=== PATIENT | female | born 1980 | race Caucasian/White ===

== ENCOUNTER → 2017-05-30 | Outpatient (CLI) | payer OTHER ==
[~2017-05-30] MED LIST: ACET-1311 PO; BCPILLS PO; IBUP-1050 PO; PRENTAB26 PO; PSYL55.43 PO
[2017-05-30 10:06] LABS: CHOLESTEROL/HDL RATIO 3.8
== END | disposition home or self-care (01) ==
LOC: C.LAB 07:14
PROVIDERS: ATTEND Family Medicine
DX: Z13.220 Encounter for screening for lipoid disorders (principal); Z13.1 Encounter for screening for diabetes mellitus

== ENCOUNTER → 2018-06-10 | Outpatient (CLI) | payer OTHER | END | disposition home or self-care (01) | LOC: C.LABSPEC 17:53 | PROVIDERS: ATTEND Obstetrics & Gynecology | DX: O09.521 Supervision of elderly multigravida, first trimester (principal); Z3A.00 Weeks of gestation of pregnancy not specified ==

== ENCOUNTER → 2018-06-18 | Outpatient (CLI) | payer OTHER | END | disposition home or self-care (01) | LOC: C.LAB1850 13:32 | PROVIDERS: ATTEND Obstetrics & Gynecology | DX: O09.521 Supervision of elderly multigravida, first trimester (principal); Z3A.00 Weeks of gestation of pregnancy not specified ==

== ENCOUNTER → 2018-06-24 | Outpatient (CLI) | payer OTHER | END | disposition home or self-care (01) | LOC: C.LAB 07:21 | PROVIDERS: ATTEND Family Medicine | DX: Z00.00 Encounter for general adult medical examination without abnormal findings (principal) ==

== ENCOUNTER 2019-09-24 07:35 | Inpatient (IN) ==
[2019-09-24] MEDS ORDERED: OXYTOCIN 30 UNITS/500 ML BAG IV PRN ×3 (07:52→19:25)
[2019-09-24] MEDS ORDERED: PENICILLIN G POTASSIUM 6 MU in DEXTROSE 5% 250 ML IV STA (07:59)
[2019-09-24 08:18] LABS: Hematocrit (blood only) 36.9 % (37-47); Hemoglobin 12.3 g/dL (12.0-16.0); Mean Corpuscular Hemoglobin 30.3 pg (25-34); Mean Corpuscular Volume 90.9 fL (80-100); Mean Platelet Volume 10.6 fL (7.4-10.4); Platelet Count 235 K/uL (130-400); RDW Coefficient of Variation 14.8 % (11.5-14.5); RDW Standard Deviation 48.7 fL (36.4-46.3); Red Blood Count 4.06 M/uL (4.2-5.4); White Blood Count 8.62 K/uL (4.8-10.8)
[2019-09-24 08:30] LABS: Mean Corpuscular Hgb Conc 33.3 g/dL (32-36)
--- NOTE | 2019-09-24 08:32 | History & Physical Report ---
Date of Service September 24, 2019 Assessment & Plan (1) Supervision of elderly multigravida: (2) Group B Streptococcus carrier, antepartum: (3) Encounter for elective induction of labor: admit, iv, labs. worrell placed for mechanical dilation. start pit and pcn. pt and partner agreeable to plan. History of Present Illness Chief Complaint: planned induction Primary Care Provider: Kyle Monique MD 39yo at 39 wks ega presents for planned social induction. Denies regular ctx, rom, vb. +FM. Aware of plan for cervical dilator and pitocin and agrees. PNC c/b 1. AMA--low risk panorama 2 GBS pos PNL RH pos, ri, gbs pos OBH: x 1 sab x 3 GYNH: nl paps, no stds PMH: neg PSH: wisdom teeth Allergies Allergy/AdvReac Type Severity Reaction Status Date / Time No Known Allergies Allergy Unknown Verified 09/23/19 10:57 Home Medications Home Medications Medication Instructions Recorded Confirmed Type [id number] 3-fat com #1 27 cap PO cap 07/01/19 09/23/19 History mg-1 mg-300 mg capsule psyllium PO PRN 07/01/19 09/23/19 History Patient History Medical History History of spontaneous History of varicella Surgical History History of wisdom tooth extraction Family History Aunt Breast cancer paternal Grandmother (Paternal) Diabetes Dyslipidemia Hypertension Stroke Father Hypertension Sister Thyroid disease Social History Preferred Language: Icelandic Communication Ability: 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 Beliefs That Will Affect Care: None marital status: Current Living Situation: Family Other Information That Helps Us Care for You: No Feels Safe at Home: Yes Safety Concerns: Feels Safe At This Time Smoking Status: Never smoker Do You Dip or Chew Tobacco: No ; Second Hand Exposure: No ; Hx Alcohol Use: Yes (when not ) Alcohol type: hard liquor Hx Substance Use: No Review of Systems no fever no dysuria and no abnormal vaginal bleeding Physical Exam Constitutional: WD/WN, vitals as above Respiratory: normal respiratory effort, lungs clear to auscultation Cardiovascular: Rate/Rhythm: regular rate and regular rhythm Gastrointestinal (Abdomen): Percussion/Palpation: abdomen soft (gravid efw 8#); abdomen nontender Neurologic: grossly normal Psychiatric: A+Ox3, euthymic affect Genitourinary: OB Exam Abdomen: + vertex and + estimated weight (8#) Manual OB Exam: + cervical dilation (1+), + cervical effacement 50% and + station -2 OB Exam Monitor Tracing: + external FHT monitor used (130 mod variability, reactive ), + external uterine monitor used (q4), + category I and + normal FHT variability PROCEDURE: spec placed, worrell through os and balloon inflated with 40cc water, speculum removed, worrell taped to leg. Results & Data Vital Signs (Past 12 Hours) Vital Signs Temp Resp 09/24/19 08:02 98.2 F 20
[2019-09-24] MEDS: LACTATED RINGER'S 1,000 ML IV PRN ×2 (09:15→15:28)
--- NOTE | 2019-09-24 13:02 | Labor Progress Brief Note ---
Date of Service September 24, 2019 Subjective Reason For Note: Routine Evaluation worrell balloon fell out. can feel ctx but tolerating. Assessment & Plan (1) Encounter for elective induction of labor: worrell fell out. cx as noted. see how arom augments labor pattern, c/w pit. (2) Group B Streptococcus carrier, antepartum: on pcn (3) Supervision of elderly multigravida: Physical Exam Constitutional: WD/WN, vitals as above Genitourinary: Manual OB Exam: + cervical dilation 4 cm, + cervical effacement 70%, + station -2 and + amniotic fluid (AROM) clear OB Exam Monitor Tracing: + external FHT monitor used (130 mod variability, reactive), + external uterine monitor used (q2, pit 3), + category I and + normal FHT variability Results & Data Vital Signs (Past 12 Hours) Vital Signs Temp Pulse Resp BP 09/24/19 10:24 76 113/79 09/24/19 08:38 73 113/77 09/24/19 08:02 98.2 F 20
[2019-09-24] MEDS ORDERED: ePHEDrine sulfate 50 MG/ML AMP ONE (13:35)
[2019-09-24] MEDS ORDERED: BUPIVACAINE 0.25% 30 ML VIAL ONE ×2 (13:35→18:53)
[2019-09-24] MEDS ORDERED: fentaNYL citrate 100 MCG/2 ML VIAL ONE (13:35)
[2019-09-24] MEDS ORDERED: fentaNYL 2MCG/ML ROPIV 1.25MG/ML 100 ML BAG EPI ONE (13:36)
[2019-09-24] MEDS: PENICILLIN G POTASSIUM 3 MU in DEXTROSE 5% 100 ML IV PRN ×2 (13:37→17:37)
--- NOTE | 2019-09-24 14:42 | Anesthesiology Consultation ---
Date of Service September 24, 2019 Assessment & Plan (1) Encounter for pre-operative examination: Chart Review Chart Review: Patient NOT seen in Pre Admission Testing and Acceptable Risk for Labor Epidural Consults Requested none ASA ASA2 Proposed Anesthesia Anesthesia Type: Labor Epidural Risk / Benefits Reviewed With: PT / POA / Parent / Guardian, Accepts Plan and Informed Consent Obtained History Height/Weight Height: 5 ft 4 in Weight: 92.533 kg Allergies Allergy/AdvReac Type Severity Reaction Status Date / Time No Known Allergies Allergy Unknown Verified 09/23/19 10:57 Medications Home Medications Medication Instructions Recorded Confirmed Last Taken Formula-DHA 1 PO DAILY 09/24/19 09/23/19 20:00 Active Medications Generic Name Dose Route Start Last Admin Trade Name Freq PRN Reason Stop Dose Admin Lactated Ringer's 1,000 mls @ 125 mls/hr 09/24/19 07:52 09/24/19 14:07 Lr IV 09/26/19 07:51 Infused .Q8H PRN Infusion L&D Protocol Protocol Oxytocin 30 units in 500 mls @ 3 mls/hr 09/24/19 07:52 09/24/19 10:23 Pitocin IV 09/26/19 07:51 0.18 units/hr .Q24H PRN 3 mls/hr Labor Induction/Augmentation Titration Protocol 0.18 UNITS/HR Penicillin G Potassium 3 mu/ 106 mls @ 100 mls/hr 09/24/19 12:00 09/24/19 13:37 Dextrose IV 10/04/19 11:59 100 mls/hr Q4H PRN Administration Give until delivery Past Medical History Medical History History of spontaneous History of varicella Exercise / Class Metabolic Activity II 4-5 Yardwork/Stairs/Walk up hill Past Family History Family History Aunt Breast cancer paternal Grandmother (Paternal) Diabetes Dyslipidemia Hypertension Stroke Father Hypertension Sister Thyroid disease Past Surgical History Surgical History History of wisdom tooth extraction Past Anesthesia History No Hx of Anesthesia Complications and No Family Hx of Anesthesia Complications History of PONV No Hx of PONV and No Hx of Motion Sickness Social History Smoking Status: Never smoker Do You Dip or Chew Tobacco: No Hx Alcohol Use: Yes (when not ) Alcohol type: hard liquor alcohol intake frequency: holidays/special occasions only Hx Substance Use: No substance use type: does not use Physical Exam Vital Signs Last Vital Signs Temp 37.1 C 09/24/19 13:47 Pulse 60 09/24/19 14:41 Resp 20 09/24/19 13:47 BP 90/55 L 09/24/19 14:41 Pulse Ox 100 09/24/19 14:37 ENMT Mouth: no dentition abnormality Thyromental Distance: > or= 3.5 Finger Breadths Mallampati Class: II Neck normal visual inspection Respiratory normal respiratory effort Auscultation: lungs clear to auscultation bilaterally Cardiovascular Rate/Rhythm: regular rate and regular rhythm Psychiatric Orientation: alert Testing Laboratory Results 09/24/19 08:01
[2019-09-24] MEDS ORDERED: ePHEDrine sulfate 50 MG/ML AMP IV PRN (14:43)
[2019-09-24] MEDS ORDERED: fentaNYL 2MCG/ML ROPIV 1.25MG/ML 100 ML BAG EPI PRN (14:43)
[2019-09-24] MEDS ORDERED: ONDANSETRON INJ 2 MG/ML 2 ML VIAL IV PRN (14:43)
[2019-09-24] MEDS ORDERED: NALBUPHINE HCL INJ 10 MG/ML AMP IV PRN (14:43)
[2019-09-24] MEDS ORDERED: NALOXONE HCL 1 MG in SODIUM CHLORIDE 0.9% 1000ML 1,000 ML IV PRN (14:43)
[2019-09-24] MEDS ORDERED: NALOXONE HCL 0.4 MG/1 ML VIAL/CARP IV PRN (14:43)
[2019-09-24] MEDS ORDERED: PROMETHAZINE HCL 6.25 MG in SODIUM CHLORIDE 0.9% 50 ML IV PRN (14:43)
[2019-09-24] MEDS ORDERED: DiphenhydrAMINE HCL 50 MG/ML VIAL IV PRN (14:43)
--- NOTE | 2019-09-24 14:48 | Anesthesiology Progress Note ---
Date of Service September 24, 2019 Subjective !st attempt at epidural, easy access to epidural space but unable to place cath eter. 2nd attempt, spinal fluid encountered from [place]. Spinal catheter placed, and the catheter dosed appropriately. Will monitor level closely and adjust if needed. Discussed the possible PDPH with patient and how we could manage it. Also recommended possibility of leaving catheter in place for 24 hours after delivery. She verbalizes understanding. Physical Exam Vital Signs: Last Vital Signs Temp 37.1 C 09/24/19 13:47 Pulse 69 09/24/19 14:43 Resp 20 09/24/19 13:47 BP 91/55 L 09/24/19 14:43 Pulse Ox 99 09/24/19 14:42 Results & Data Medications Administered Lactated Ringer's (Lr) 1,000 mls @ 125 mls/hr IV .Q8H PRN; Protocol PRN Reason: L&D Protocol Stop: 09/26/19 07:51 Last Infusion: 09/24/19 14:07 Dose: 125 mls/hr Documented by: [id number] Infusion: 09/24/19 13:33 Dose: 999 mls/hr Documented by: [id number] Admin: 09/24/19 09:15 Dose: 125 mls/hr Documented by: [id number] Oxytocin (Pitocin) 30 units in 500 mls @ 3 mls/hr IV .Q24H PRN; Protocol PRN Reason: Labor Induction/Augmentation Stop: 09/26/19 07:51 Last Titration: 09/24/19 10:23 Dose: 0.18 units/hr, 3 mls/hr Documented by: [id number] Admin: 09/24/19 09:41 Dose: 0.06 units/hr, 1 mls/hr Documented by: [id number] Cosigned by: [id number] Penicillin G Potassium 3 mu/ (Dextrose) 106 mls @ 100 mls/hr IV Q4H PRN PRN Reason: Give until delivery Stop: 10/04/19 11:59 Last Admin: 09/24/19 13:37 Dose: 100 mls/hr Documented by: [id number]
--- NOTE | 2019-09-24 15:21 | Labor Progress Brief Note ---
Date of Service September 24, 2019 Subjective Reason For Note: Routine Evaluation comfortable now with epidural. Assessment & Plan (1) Encounter for elective induction of labor: (2) Group B Streptococcus carrier, antepartum: (3) Supervision of elderly multigravida: good cx change, will increase pit to keep ctx strong and regular. fhts categ 1. Physical Exam Constitutional: WD/WN, vitals as above Genitourinary: Manual OB Exam: + cervical dilation (5-6cm), + cervical effacement (75%) and + station -2 OB Exam Monitor Tracing: + external FHT monitor used (130 mod variability ), + external uterine monitor used (q2. pit at 3), + category I and + normal FHT variability Results & Data Vital Signs (Past 12 Hours) Vital Signs Temp Pulse Resp BP Pulse Ox 09/24/19 15:17 69 100 09/24/19 15:12 66 100 09/24/19 15:07 70 100 09/24/19 15:06 74 104/65 09/24/19 15:02 75 100 09/24/19 14:57 68 100 09/24/19 14:52 71 100 09/24/19 14:49 63 100/63 09/24/19 14:47 65 99/59 L 100 09/24/19 14:45 64 92/55 L 09/24/19 14:43 69 91/55 L 09/24/19 14:42 59 L 99 09/24/19 14:41 60 90/55 L 09/24/19 14:39 61 94/56 L 09/24/19 14:37 71 95/50 L 100 09/24/19 14:35 81 99/55 L 09/24/19 14:33 71 104/57 L 09/24/19 14:32 83 100 09/24/19 14:31 67 133/83 09/24/19 14:27 75 100 09/24/19 14:22 80 100 09/24/19 14:17 86 99 09/24/19 14:12 82 100 09/24/19 14:07 80 100 09/24/19 14:02 76 92 09/24/19 13:51 74 100 09/24/19 13:49 74 115/80 09/24/19 13:47 98.8 F 20 09/24/19 10:24 76 113/79 09/24/19 08:38 73 113/77 09/24/19 08:02 98.2 F 20
[2019-09-24] MEDS ORDERED: OR MISCELLANEOUS MED XX ONE (18:11)
[2019-09-24] MEDS ORDERED: SODIUM CHLORIDE 0.9% 500 ML IV ONE (19:00)
--- NOTE | 2019-09-24 19:20 | Anesthesia Procedure Note ---
Date of Service September 24, 2019 Anesthesia Post Epidural Note Vital Signs Vital Signs: Temp Pulse Resp BP Pulse Ox 36.8 C 89 16 129/56 L 99 09/24/19 17:32 09/24/19 19:07 09/24/19 17:32 09/24/19 19:06 09/24/19 19:07 Notes Mental Status: alert / awake / arousable Nausea / Vomiting: adequately controlled Pain: adequately controlled Airway Patency, RR, SpO2: stable & adequate BP & HR: stable & adequate Hydration State: stable & adequate Neuraxial Anesthesia: was administered and sensory block is resolving Anesthetic Complications: see Notes below and Pt Satisfied with anesthetic care Epidural: Removed without complications and With tip intact Notes: Inadvertent dural puncture as noted on labor record. Spinal catheter placed and used for labor. The patient was offered to keep the catheter in for 24 hours to potentially reduce the risk of PDPH, but she elected to remove the catheter at the completion of labor. Catheter tip was pulled, and patient was given information to contact her nurse or the anesthesiology department if she develops a postural headache in the next few days.
[2019-09-24] MEDS ORDERED: ACETAMINOPHEN 325 MG TAB PO PRN (19:25)
--- NOTE | 2019-09-24 19:28 | Delivery Summary ---
Vaginal Delivery Summary Date of Service September 24, 2019 The patient dilated to complete and pushed to deliver a viable female Apg ars 9 and 9 via over partial 3rd degree perineal laceration. Mouth and nose bulb suctioned at perineum. Shoulders and body delivered with ease. was vigorous and crying at . Cord clamped at 30 seconds of life and infant to maternal abdomen where the cord was then doubly clamped and cut. Placenta delivered spontaneously and intact, three-vessel cord. Hemostasis achieved with dilute pitocin and uterine massage. Cervix and sulci intact. Laceration repaired in multiple layers with 2-0 and 3-0 vicryl in usual fashion. EBL 300 cc. Mother and baby stable recovery.
[2019-09-24] MEDS ORDERED: OXYTOCIN 20 UNITS in LACTATED RINGER'S 1,000 ML IV SCH (19:30)
[2019-09-24] MEDS ORDERED: SUPERCREAM 0.870% 15 GM JAR EXT PRN (19:35)
[2019-09-24] MEDS ORDERED: HYDROCORTISONE ACETATE 25 MG SUPP PR PRN (19:35)
[2019-09-24] MEDS ORDERED: DIPHTHERIA/TETANUS/PERTUSSIS 0.5 ML SYR/VIAL IM ONE (19:35)
[2019-09-24] MEDS ORDERED: BENZOCAINE 20% AER SPR 82.5 GM CAN EXT PRN (19:35)
[2019-09-24] MEDS ORDERED: SODIUM CHLORIDE 0.9% 1000ML 1,000 ML IV SCH (20:00)
[2019-09-24] MEDS: IBUPROFEN 600 MG TAB PO PRN (21:06)
[2019-09-25] MEDS: IBUPROFEN 600 MG TAB PO PRN ×4 (00:51→13:01)
[2019-09-25] MEDS: OXYCODONE/ACETAMINOPHEN 5mg/325mg TAB PO PRN ×3 (01:42→09:55)
--- NOTE | 2019-09-25 07:50 | Obstetrical Progress Note ---
Date of Service September 25, 2019 Assessment & Plan (1) Normal vaginal delivery: stable routine care. need anesth to consider blood patch, pt aware they are called to see her. Day #:: 1 Subjective Ambulation: limited ambulation (due to sx of spinal RAÍMREZ) Voiding: no voiding problems Diet Tolerance:: regular diet Lochia:: Small Feeding Type:: breast feeding (pumping) noted alot of neck pain, pulling in neck with upright positioning overnight. had wet tap and now with sx of spinal RAMÍREZ. she feels well except for this. Physical Exam Constitutional WD/WN, vitals as above Respiratory normal respiratory effort, lungs clear to auscultation Cardiovascular Rate/Rhythm: regular rate and regular rhythm Gastrointestinal (Abdomen) Percussion/Palpation: abdomen soft; abdomen nontender FF at u, nt Musculoskeletal nt calves Skin no rashes, warm and dry Neurologic grossly normal Psychiatric A+Ox3, euthymic affect Lymphatic no cervical or axillary lymphadenopathy (no supraclavicular adenopathy) Results & Data Vital Signs (Past 12 Hours) Vital Signs Temp Pulse Pulse Resp BP BP Pulse Ox 09/25/19 04:15 98.2 F 68 16 98/91 L 96 09/24/19 23:25 98.1 F 70 18 137/72 96 09/24/19 22:00 97.9 F 86 18 123/76 09/24/19 21:20 98.8 F 71 16 127/70 09/24/19 21:06 69 132/70 09/24/19 20:35 75 124/76 09/24/19 20:20 75 121/70 09/24/19 20:05 75 16 120/64 09/24/19 19:51 81 16 117/65
[2019-09-25] MEDS: DOCUSATE SODIUM 100 MG CAP PO SCH ×2 (08:39→20:28)
--- NOTE | 2019-09-25 09:54 | Anesthesiology Progress Note ---
Date of Service September 25, 2019 Subjective I was called to evaluate the patient for a postdural puncture headache. The pat morteza states having a headache since around 2AM. She states having neck pain that radiated to her occipital region. She states the headache being worse in the sitting/standing position versus laying down. The patient had a spinal catheter, so I spoke to the patient about her likely having a postdural puncture headache. I spoke to her about conservative management (NSAIDs, fluids, caffeine) vs. an e pidural blood patch. The patient was aware of the risks of bleeding, infection, nerve injury, and headache for the blood patch. She preferred having a blood patch performed. A timeout was completed. The patient's back was cleaned with duraprep and a sterile drape was placed. L3-4 was identified. A skin wheal with lidocaine was performed. A 17G Touhy needle was advanced until there was loss of resistance to air. There was no blood or CSF. The patient's right antecubital vein was sterilely draped and 10mL of blood was obtained. The patient's blood was injected into the epidural space. 9mL was inserted, and the patient developed back pressure. The patient was placed supine for 15 minutes. VSS throughout. Afterwards, the patient stated mild improvement, but she still had neck pain/occipital headache. I recommended that she continue fluid hydration, NSAIDs, and caffeine. The patient was otherwise stable to be returned to the unit. Physical Exam Vital Signs: Last Vital Signs Temp 97.9 F 09/25/19 08:40 Pulse 70 09/25/19 08:40 Resp 16 09/25/19 08:40 BP 104/72 09/25/19 08:40 Pulse Ox 98 09/25/19 08:40 Results & Data Medications Administered Benzocaine (Dermoplast Pain Relieving Ruston) 1 appln EXT PRN PRN PRN Reason: Perineal Discomfort Stop: 10/24/19 19:34 Last Admin: 09/24/19 22:26 Dose: 1 appln Documented by: [id number] Cocaine HCl (Supercream 0.870%) 1 gm EXT BID PRN PRN Reason: Hemorrhoidal Inflammation Stop: 10/08/19 19:34 Last Admin: 09/24/19 22:24 Dose: 1 gm Documented by: [id number] Docusate Sodium (Colace) 100 mg PO DAILY@08,21 [facility] Stop: 10/24/19 20:59 Last Admin: 09/25/19 08:39 Dose: 100 mg Documented by: [id number] Oxytocin 20 units/ Lactated (Ringer's) 1,002 mls @ 125 mls/hr IV .Q8H1M [facility] Stop: 10/24/19 19:29 Last Infusion: 09/25/19 06:24 Dose: 0 mls/hr Documented by: [id number] Cosigned by: [id number] Infusion: 09/24/19 21:35 Dose: 125 mls/hr Documented by: [id number] Cosigned by: [id number] Admin: 09/24/19 21:06 Dose: 125 mls/hr Documented by: [id number] Cosigned by: [id number] Ibuprofen (Motrin) 600 mg PO Q4H PRN PRN Reason: Pain/RAMÍREZ/Cramping/Fever Stop: 10/24/19 19:24 Last Admin: 09/25/19 08:38 Dose: 600 mg Documented by: [id number] Admin: 09/25/19 05:15 Dose: 600 mg Documented by: [id number] Admin: 09/25/19 00:51 Dose: 600 mg Documented by: [id number] Admin: 09/24/19 21:06 Dose: 600 mg Documented by: [id number] Oxycodone/Acetaminophen (Percocet 5mg/325mg) 1 tab PO Q4H PRN PRN Reason: Pain not relieved by... Stop: 10/08/19 19:24 Last Admin: 09/25/19 06:22 Dose: 1 tab Documented by: [id number] Admin: 09/25/19 01:42 Dose: 1 tab Documented by: [id number]
[2019-09-26] MEDS: DOCUSATE SODIUM 100 MG CAP PO SCH (08:10)
--- NOTE | 2019-09-26 08:49 | Obstetrical Progress Note ---
Date of Service September 26, 2019 Assessment & Plan (1) : PPD#2 doing well, no concerns. Reviewed discharge instructions, questions answered. Followup in office with Dr Morales in 6w. Subjective Ambulation: ambulating normally Voiding: no voiding problems Diet Tolerance:: regular diet Lochia:: Moderate Review of Systems All systems reviewed & are unremarkable except as noted in HPI & below Physical Exam Constitutional WD/WN, vitals as above no acute distress Respiratory normal respiratory effort Cardiovascular Rate/Rhythm: regular rate and regular rhythm Gastrointestinal (Abdomen) Inspection/Auscultation: abdomen normal to inspection; abdomen not distended Percussion/Palpation: abdomen soft Genitourinary OB Exam Abdomen: + fundal height Fundus: + firm; not tender Results & Data Vital Signs (Past 12 Hours) Vital Signs Temp Pulse Resp BP Pulse Ox 09/26/19 03:00 36.8 C 69 18 106/74 96 09/25/19 23:45 36.7 C 87 18 99/62 L 95
== END 2019-09-26 14:50 | disposition home or self-care (01) | DRG 768 ==
LOC: 4S1 07:35 → 4S2 21:53